=== PATIENT | male | born 1990 | race American Indian/Alaskan Native ===

== ENCOUNTER 2016-11-28 21:52 | Emergency (ER) | payer SELFPAY ==
[2016-11-28 22:56] VITALS: BP 131/86
== END 2016-11-29 | disposition left against medical advice (07) ==
LOC: ED 21:52
DX: K08.89 Other specified disorders of teeth and supporting structures (principal); Z53.21 Procedure and treatment not carried out due to patient leaving prior to being seen by health care provider